=== PATIENT | female | born 1965 | race Hispanic/Latino ===

== ENCOUNTER 2018-04-06 12:33 | Inpatient (IN) | payer SELFPAY ==
[2018-04-06] MEDS ORDERED: Ondansetron ODT 4 MG TAB ONE ×2 (13:04→23:16)
[2018-04-06 13:35] LABS: #Lymphocytes 2.5 thou/uL (1.20-3.40); #Monocytes 0.8 thou/uL (0.11-0.59); #Neutrophils 9.6 thou/uL (1.40-6.50); %Basophils 0.4 % (0.0-1.0); %Eosinophils 0.2 % (0.0-10.0); %Monocytes 6.2 % (0.0-10.0); %Neutrophils 74.2 % (42.0-75.0); Hemoglobin 12.8 g/dL (12.0-16.0); Mean Corpuscular HGB CONC 34.4 g/dL (32.0-36.0); Mean Corpuscular Hemoglobin 29.1 pg (27.0-31.0); Mean Corpuscular Volume 84.7 fL (78.0-98.0); Mean Platelet Volume 10.2 fL (7.4-10.4); Platelet Count 173 thou/uL (130-400); RBC Distribution Width 12.7 % (11.5-14.5); Red Blood Cell (RBC) Count 4.41 mill/uL (4.20-5.40)
[2018-04-06] MEDS ORDERED: Pantoprazole 40 MG VIAL ONE (13:57)
[2018-04-06] MEDS ORDERED: Ketorolac Tromethamine 30 MG/ML VIAL ONE (13:57)
[2018-04-06 14:05] LABS: ALT (SGPT) 106 U/L (8-55); AST (SGOT) 252 U/L (5-34); Albumin 3.9 g/dL (3.5-5.0); Alkaline Phosphatase 169 U/L (40-150); Anion Gap 16 mmol/L (10-20); BUN (Urea Nitrogen) 9 mg/dL (7.0-18.7); Bilirubin, Total 2.2 mg/dL (0.2-1.2); Calc. Creatinine Clearance 0 mL/min (70-130); Calcium 9.5 mg/dL (7.8-10.44); Carbon Dioxide 23 mmol/L (22-29); Chloride 100 mmol/L (98-107); Estimated GFR-MDRD 77; Globulin 4.5 g/dL (2.4-3.5); Glucose 200 mg/dL (70-105); Lipase 9 U/L (8-78); Potassium 4.2 mmol/L (3.5-5.1); Protein, Total 8.4 g/dL (6.0-8.3); Sodium 135 mmol/L (136-145)
--- NOTE | 2018-04-06 14:17 | RAD ---
AP VIEW CHEST: Date: 04/06/18 INDICATION: Abdominal pain. COMPARISON: None. FINDINGS: Lungs are clear. Cardiomediastinal silhouette is within normal limits. No acute osseous abnormality i s evident. There are mild vascular calcifications involving the thoracic aorta. IMPRESSION: No acute abnormality. POS: [facility]
--- NOTE | 2018-04-06 14:20 | ULT ---
RIGHT UPPER QUADRANT ULTRASOUND: INDICATION: Right upper quadrant pain with nausea and vomiting. FINDINGS: The liver is slightly enlarged measuring 20.8 cm. The gallbladder demonstrates multiple shadowing stones. The gallbladder wall is mildly thickened melvin suring 4 mm. There is a report of a positive sonographic Shields's sign. No pericholecystic edema is evident. The common bile duct is slightly prominent measuring 7 mm. There is a report of a positive sonographic Shields's sign. Visualized aspects of the pancreas are unremarkable. The right kidney measures 10.1 x 4.5 x 5.5 cm. IMPRESSION: 1. Cholelithiasis with mild gallbladder wall thickening and a positive sonographic Shields's sign rylee t is suspicious for changes of acute calculus cholecystitis. 2. Slight dilatation of the common bile duct to 7 mm is pronounced for the patient's age. Distal co mmon bile duct stone or obstruction process is not excluded. 3. Recommend consideration for MRCP or HIDA scan for further evaluation. 4. Mild hepatomegaly. POS: H
[2018-04-06] MEDS ORDERED: Levofloxacin 500 mg/D5W 100 ml Premix Bag ONE (14:35)
[2018-04-06 17:30] LABS: Bilirubin Small (Negative); Blood, Urine Negative (Negative); Clarity CLEAR (Clear); Glucose, Urine (Dipstick) 250 mg/dL (Negative); Leukocyte Negative (Negative); Nitrite Positive (Negative); Protein, Urine (Dipstick) Trace mg/dL (Neg-Trace); Specific Gravity, Urine 1.017 (1.002-1.036)
[2018-04-06 17:34] LABS: Bacteria/HPF 4+ HPF (None Seen); Hyaline Casts/LPF 0-3 HYALINE CAST LPF (0-3 Hyaline); Pathc Cast-AUWi Flag 0.14 (0-2.49); Squamous Epithelial 0-3 HPF (0-3); WBC/HPF 0-3 HPF (0-3)
[2018-04-06 17:50] LABS: RBC/HPF 0-3 HPF (0-3)
[2018-04-06] MEDS ORDERED: Morphine 4 MG/ML VIAL ONE (18:07)
[2018-04-06] MEDS ORDERED: Famotidine/PF 20 mg/2ml Vial ONE (18:07)
[2018-04-06] MEDS ORDERED: Midazolam HCl 2 mg/2 ml Vial ONE (18:39)
[2018-04-06] MEDS ORDERED: Fentanyl 100 MCG/2 ML VIAL ONE (18:47)
[2018-04-06] MEDS ORDERED: Bupivacaine HCl 0.5%/Epinephrine 1:200,000/PF 30 ml Vial ONE (18:47)
[2018-04-06] MEDS ORDERED: Iothalamate Meglumine 60% 50 ML VIAL FS ONE (18:47)
--- NOTE | 2018-04-06 20:05 | RAD ---
INTRAOPERATIVE CHOLANGIOGRAM WITH FLUOROSCOPY: HISTORY: Cholecystectomy. FINDINGS: Intraoperative fluoroscopy was provided for cholangiogram, as performed by Dr. Rivas. Spot fluorosc opic images show operative hardware overlying the gallbladder fossa. There is contrast opacification of a nondilated common duct. Opacification of the duodenum is not reliably demonstrated, although n o filling defects or meniscus sign is visible. FLUOROSCOPY TIME: 20 seconds. POS: [facility]
[2018-04-06] MEDS ORDERED: Morphine 4 MG/ML VIAL SLOW IVP PRN (20:16)
[2018-04-06] MEDS ORDERED: Dextrose 5% in Water 1,000 ML IV PRN (20:16)
[2018-04-06] MEDS ORDERED: Ondansetron HCl/PF 4 MG/2 ML Vial IVP PRN ×2 (20:16→20:27)
[2018-04-06] MEDS ORDERED: Dextrose 50% Abboject 50 ML SYRINGE SLOW IVP PRN (20:16)
[2018-04-06] MEDS ORDERED: Ondansetron ODT 4 MG TAB PO PRN (20:16)
[2018-04-06] MEDS ORDERED: Acetaminophen 1,000 MG in Premix Bag 1 BAG IVPB PRN (20:21)
[2018-04-06] MEDS ORDERED: traMADol HCl 50 MG TAB PO PRN ×2 (20:21)
[2018-04-06] MEDS ORDERED: Acetaminophen 500 MG TAB PO PRN (20:21)
[2018-04-06] MEDS ORDERED: Ibuprofen 600 MG TAB PO PRN (20:21)
[2018-04-06] MEDS ORDERED: Promethazine HCl 25 MG/ML VIAL SLOW IVP PRN (20:27)
[2018-04-06] MEDS ORDERED: Promethazine HCl 25 MG/ML VIAL IM PRN (20:27)
[2018-04-06] MEDS: Sodium Chloride 0.9% 1,000 ML IV SCH (21:45)
[2018-04-06] MEDS: Ketorolac Tromethamine 30 MG/ML VIAL IVP PRN (21:45)
[2018-04-06] MEDS: Enoxaparin Sodium 40 MG/0.4 ML SYRINGE SC SCH (21:45)
[2018-04-06] MEDS: Famotidine/PF 20 mg/2ml Vial SLOW IVP SCH (21:45)
[2018-04-06 23:28] VITALS: BMI 40.8
--- NOTE | 2018-04-06 23:52 | HP ---
HISTORY OF PRESENT ILLNESS: A 52-year-old female who over past several months, has had problems with intermittently epigastric right upper quadrant pain, but the last three days has had unrelenting marsha n leading her to present to the emergency room where she was found to have a white count of 13, hemog lobin of 12, bilirubin of 2.2, AST of 252, ALT 106, lipase of 9. Gallbladder ultrasound was obtained revealing cholecystitis and cholelithiasis, bile duct caliber 7 mm, upper limits of normal, positive sonographic Shields sign. ALLERGIES: RODGER. TOBACCO: None. ALCOHOL: Rarely. MEDICATIONS: She received Levaquin in the emergency room as well as Toradol. She has received Zofra n and Protonix. Patient is on antibiotic at home for toenail infection, terbinafine 250 mg a day, pi oglitazone 45 mg a day, glipizide 10 mg a day. PAST MEDICAL HISTORY: Diabetes mellitus type 2 and obesity. PAST SURGICAL HISTORY: Hysterectomy, oophorectomy, prior to that. REVIEW OF SYSTEMS: Ten-point noncontributory. Never has had a colonoscopy. PHYSICAL EXAMINATION: VITAL SIGNS: 104 pounds, 16 respiratory rate, 98.8 degrees, 76, 144/82. HEAD, EYES, EARS, NOSE, AND THROAT: Unremarkable. Sclerae nonicteric. LUNGS: Clear to auscultation. CARDIAC: Regular rate and rhythm without murmur or gallop. ABDOMEN: Soft, tenderness in right groin guarding, rebound. Positive Shields sign. EXTREMITIES: Unremarkable. No ankle edema. LABORATORIES: As noted above. ASSESSMENT AND PLAN: 1. Acute cholecystitis and cholelithiasis, elevated liver function test and upper limits of normal c ommon bile duct. We will plan laparoscopic cholecystectomy, cholangiograms. Her liver function test could be elevated due to her acute cholecystitis, but she is at risk for choledocholithiasis, possib ility of ERCP with Dr. Rose explain to the patient. Risk of operation, infection, bleeding, visceral and biliary injury, open procedure discussed. Risk of ERCP bleeding, perforation, infection and lakhani creatitis discussed. Questions answered. 2. Morbid obesity. 3. Metabolic syndrome. 4. Diabetes mellitus.
--- NOTE | 2018-04-07 00:48 | OP ---
DATE OF SERVICE: 04/06/2018 PREOPERATIVE DIAGNOSES: Morbid obesity, umbilical hernia, acute on chronic cholecystitis, cholelithi asis, choledocholithiasis. POSTOPERATIVE DIAGNOSES: Morbid obesity, umbilical hernia, acute on chronic cholecystitis, cholelith iasis, choledocholithiasis. PROCEDURE: Laparoscopic video cholecystectomy, positive intraoperative cholangiograms without emptyi ng of the common bile duct into the duodenum. SURGEON: Dr. Sander Rivas. ANESTHESIA: General, local 0.5% Marcaine with epinephrine. DESCRIPTION OF PROCEDURE: The patient taken to the operating room where under general anesthesia, ab shelton was prepared with ChloraPrep, draped in routine fashion. Supraumbilical incision made (umbilic al hernia) and pneumoperitoneum to 15 mmHg obtained with a Veress needle, replacing it with a 5 port, and video laparoscope inserted. Right subxiphoid incision made and 11 port placed. Right subcostal incision made. Thick mid clavicular anterior axillary lines with 5 mm ports placed. Gallbladder wa s acutely inflamed and fundus grasped. There was clear fluid initially, then purulent discharge or d rainage. There were multiple small stones, grasped with a grasper, and submitted to pathology. Gall bladder fundus reflected cephalad. Infundibulum grasped and reflected laterally. Cystic artery and duct dissected free. Critical view obtained. Cystic artery double clipped proximally. Opening made in the cystic duct, cholangiocath inserted, and cholangiogram was obtained revealing contrast fillin g the common hepatic, common bile, left and right hepatic ducts without emptying into the duodenum. It was then flushed with saline solution. Cholangiogram was repeated using fluoroscopy. Again, ther e was no emptying. Dr. Rose was consulted and ERCP will be planned tomorrow. Cholangiocath removed. Cystic duct doubly clipped and divided and gallbladder dissected free of the liver bed using cauter y. Gallbladder came out in pieces. Multiple stones removed, and submitted to Pathology. Good hemos tasis obtained with the cautery. Right lateral port site drain #19 Gold placed in the subhepatic spa ce, in the foramen of Clymer and secured with 3-0 nylon suture. Good hemostasis ensured. Irrigant and pneumoperitoneum evacuated. All instruments removed and all skin incisions approximated with int errupted subdermal 4-0 Monocryl and DermaGlue applied.
[2018-04-07] MEDS: Ketorolac Tromethamine 30 MG/ML VIAL IVP PRN ×2 (05:54→21:07)
[2018-04-07 06:05] LABS: #Lymphocytes 1.7 thou/uL (1.20-3.40); #Monocytes 0.9 thou/uL (0.11-0.59); #Neutrophils 8.1 thou/uL (1.40-6.50); %Basophils 0.2 % (0.0-1.0); %Eosinophils 0.1 % (0.0-10.0); %Lymphocytes 16.1 % (21.0-51.0); %Monocytes 8.3 % (0.0-10.0); %Neutrophils 75.3 % (42.0-75.0); Hemoglobin 10.7 g/dL (12.0-16.0); Mean Corpuscular Hemoglobin 28.3 pg (27.0-31.0); Mean Corpuscular Volume 85.8 fL (78.0-98.0); Mean Platelet Volume 10.4 fL (7.4-10.4); Platelet Count 143 thou/uL (130-400); RBC Distribution Width 12.7 % (11.5-14.5); White Blood Cell (WBC) Count 10.8 thou/uL (4.8-10.8)
[2018-04-07] MEDS: Sodium Chloride 0.9% 1,000 ML IV SCH ×3 (06:07→21:06)
[2018-04-07 06:25] LABS: ALT (SGPT) 166 U/L (8-55); AST (SGOT) 133 U/L (5-34); Albumin 3.2 g/dL (3.5-5.0); Alkaline Phosphatase 190 U/L (40-150); Anion Gap 13 mmol/L (10-20); BUN (Urea Nitrogen) 11 mg/dL (7.0-18.7); Bilirubin, Total 5.7 mg/dL (0.2-1.2); Calc. Creatinine Clearance 132 mL/min (70-130); Calcium 8.7 mg/dL (7.8-10.44); Carbon Dioxide 25 mmol/L (22-29); Chloride 102 mmol/L (98-107); Estimated GFR-MDRD 72; Globulin 3.5 g/dL (2.4-3.5); Glucose 241 mg/dL (70-105); Potassium 4.9 mmol/L (3.5-5.1); Protein, Total 6.7 g/dL (6.0-8.3); Sodium 135 mmol/L (136-145)
--- NOTE | 2018-04-07 07:14 | CON ---
DATE OF CONSULTATION: 04/07/2018 HISTORY OF PRESENT ILLNESS: The patient is a 52-year-old female who presented with cholecys titis and underwent cholecystectomy by Dr. Rivas. An intraoperative cholangiogram showed filling de fects and no flow into the duodenum. She is sore after surgery, but otherwise without complaints. PAST MEDICAL HISTORY: Significant for diabetes mellitus. PAST SURGICAL HISTORY: Includes a hysterectomy. ALLERGIES: No known medical allergies. SOCIAL HISTORY: She does not smoke or drink. MEDICATIONS: Ultram 1-2 p.o. q.6 hours p.r.n., glipizide 2 p.o. daily, pioglitazone 45 mg p.o. daily , Terbinafine 250 mg p.o. daily. FAMILY HISTORY: Negative. REVIEW OF SYSTEMS: Noncontributory. PHYSICAL EXAMINATION: GENERAL: Shows obese female, in no acute distress. VITAL SIGNS: Temperature 98.2, pulse 66, respiratory rate 17, blood pressure 103/68. HEENT: Unremarkable. NECK: Supple. CHEST: Clear. CARDIOVASCULAR: Regular rate and rhythm. ABDOMEN: Soft, tender over the right upper quadrant. There is a drain in the right upper quadrant. EXTREMITIES: Normal. NEUROLOGIC: Nonfocal. LABORATORY DATA: Shows admission total bilirubin 2.2, AST of 252, ALT 106, alkaline phosphatase 169. CBC shows an admission hemoglobin 12.8, hematocrit 37.3, white blood cell count 13.0. ASSESSMENT: 1. Choledocholithiasis by intraoperative cholangiogram. 2. Abnormal liver function tests. 3. Diabetes mellitus. RECOMMENDATIONS: ERCP today.
[2018-04-07] MEDS: Famotidine/PF 20 mg/2ml Vial SLOW IVP SCH ×2 (08:10→21:06)
--- NOTE | 2018-04-07 09:11 | PRG ---
DATE OF SERVICE: 04/07/2018 Asia Lala is doing well today. ERCP with Dr. Andrews is planned this afternoon. PHYSICAL EXAMINATION: VITAL SIGNS: Temperature 98.2 degrees, heart rate 66, 103/68. LABORATORY: This morning her white count is 10, hemoglobin 10, sodium 135, potassium 4.9, BUN 11, cr eatinine 0.84, bilirubin is up to 5.7. AST, ALT 133 and 166 respectfully, 190 alkaline phosphatase. LUNGS: Clear to auscultation. CARDIAC: Regular rate and rhythm without murmur or gallop. ABDOMEN: Soft, postoperative tenderness as expected around laparoscopic sites. Drain serous in natu re 90 mL postoperatively. ASSESSMENT AND PLAN: Status post laparoscopic video cholecystectomy. Diet and activity as tolerated after ERCP, sphincterotomy by Dr. Andrews. Advance diet after this procedure per Dr. Andrews. Anticipate discharge home tomorrow. Check laboratories tomorrow.
[2018-04-07] MEDS ORDERED: Iothalamate Meglumine 60% 50 ML VIAL FS ONE (11:39)
[2018-04-07] MEDS ORDERED: Indomethacin 50 MG SUPP ONE ×2 (11:39→12:58)
[2018-04-07] MEDS ORDERED: Midazolam HCl 2 mg/2 ml Vial ONE (13:04)
[2018-04-07] MEDS ORDERED: Fentanyl 100 MCG/2 ML VIAL ONE (13:04)
--- NOTE | 2018-04-07 17:01 | OP ---
SURGEON: Joe Andrews M.D. INTELLIGENCE OFFICER BASIC SURGEON: None. PROCEDURE: Endoscopic retrograde cholangiopancreatography with biliary sphincterotomy and stone extr action. INDICATION: 1. Choledocholithiasis, based on positive intraoperative cholangiogram. 2. Elevated liver function tests. MEDICATIONS: 1. See anesthesia record. 2. Indomethacin 100 mg per rectum. FINDINGS: After discussion of the risks, benefits and alternatives of the procedure, informed consen t was obtained and witnessed. Pre-endoscopic cardiopulmonary examination was satisfactory. Timeout was performed before sedation was achieved. Sedation was achieved with anesthesia assistance in the endoscopy unit. The patient was endotracheally intubated and sedated under general anesthesia in a s mere-prone position on the fluoroscopy table. A Pentax adult side-viewing duodenoscope was advanced b eyond the esophagus and stomach and into the second portion of the duodenum. The ampulla was brought into view with the endoscope in the short position, the ampulla was small in size, but otherwise nor mal appearing. Using a triple lumen dome tip sphincterotome and a 0.035 guidewire, I was able to yves ectively cannulate the common bile duct. The guidewire was passed up into the right intrahepatic sys tem. Cholangiogram was performed. This demonstrated some hazy possible filling defects in the dista l common bile duct, which appeared nondilated. Cholecystectomy clips were evident. The cystic duct did not fill. At this point, a generous biliary sphincterotomy was performed. After the sphincterot sondra, we exchanged the sphincterotome for a 9-12 mm extraction balloon. I made multiple passes throug h the common bile duct with the balloon fully inflated. In this fashion, I was able to extract a sin gle small dark pigmented gallstone and a large amount of white pus from the common bile duct. We did irrigate the common bile duct with 60 mL of sterile water with clear return of following irrigation and occlusion cholangiogram was then performed, which demonstrated normal appearing common bile duct with no persistent filling defect. One final sweep was made of the common bile duct with the balloon fully inflated to sweep out excess contrast. At this point, the working apparatus and the endoscope were both completely withdrawn. The procedure was complete. Postprocedure fluoroscopic images demo nstrated no retroperitoneal or subdiaphragmatic free air. The patient tolerated the procedure well. There were no immediate post-procedure complications. IMPRESSION: Choledocholithiasis, now status post successful endoscopic retrograde cholangiopancreato graphy with biliary sphincterotomy and balloon extraction of single small dark pigmented stone and la rge amount of white pus from the common bile duct. RECOMMENDATIONS: 1. Clear liquid diet, advance as tolerated. 2. Monitor for potential post-ERCP complications including pancreatitis.
[2018-04-07] MEDS: HumaLOG 300 UNITS/3 ML VIAL SC PRN ×2 (17:47→21:13)
[2018-04-07] MEDS: Enoxaparin Sodium 40 MG/0.4 ML SYRINGE SC SCH (21:07)
[2018-04-07] MEDS ORDERED: Acetaminophen 500 MG TAB PO PRN (22:00)
[2018-04-08 06:04] LABS: #Eosinphils 0.1 thou/uL (0.0-0.7); #Lymphocytes 1.8 thou/uL (1.20-3.40); #Monocytes 0.9 thou/uL (0.11-0.59); #Neutrophils 6.3 thou/uL (1.40-6.50); %Basophils 0.3 % (0.0-1.0); %Eosinophils 1.6 % (0.0-10.0); %Lymphocytes 19.7 % (21.0-51.0); %Monocytes 9.8 % (0.0-10.0); %Neutrophils 68.6 % (42.0-75.0); Hemoglobin 9.6 g/dL (12.0-16.0); Mean Corpuscular Hemoglobin 29.3 pg (27.0-31.0); Mean Corpuscular Volume 86.3 fL (78.0-98.0); Mean Platelet Volume 10.3 fL (7.4-10.4); Platelet Count 132 thou/uL (130-400); RBC Distribution Width 12.7 % (11.5-14.5); Red Blood Cell (RBC) Count 3.28 mill/uL (4.20-5.40); White Blood Cell (WBC) Count 9.2 thou/uL (4.8-10.8)
[2018-04-08 06:29] LABS: ALT (SGPT) 105 U/L (8-55); AST (SGOT) 44 U/L (5-34); Albumin 2.8 g/dL (3.5-5.0); Alkaline Phosphatase 163 U/L (40-150); Anion Gap 11 mmol/L (10-20); BUN (Urea Nitrogen) 13 mg/dL (7.0-18.7); Calc. Creatinine Clearance 136 mL/min (70-130); Calcium 8.3 mg/dL (7.8-10.44); Carbon Dioxide 23 mmol/L (22-29); Chloride 106 mmol/L (98-107); Estimated GFR-MDRD 74; Globulin 3.4 g/dL (2.4-3.5); Glucose 156 mg/dL (70-105); Potassium 4.2 mmol/L (3.5-5.1); Protein, Total 6.2 g/dL (6.0-8.3); Sodium 136 mmol/L (136-145)
[2018-04-08] MEDS: Sodium Chloride 0.9% 1,000 ML IV SCH (06:30)
[2018-04-08] MEDS ORDERED: traMADol HCl 50 MG TAB PO PRN ×2 (07:02→07:05)
[2018-04-08] MEDS: Ketorolac Tromethamine 30 MG/ML VIAL IVP PRN ×2 (07:38→13:32)
[2018-04-08] MEDS ORDERED: glipiZIDE 10 MG TAB PO SCH ×2 (09:00)
[2018-04-08] MEDS ORDERED: Terbinafine 250 MG TAB PO SCH (09:00)
[2018-04-08] MEDS ORDERED: Pioglitazone HCl 45 MG TAB PO SCH (09:00)
--- NOTE | 2018-04-08 09:53 | PRG ---
DATE OF SERVICE: 04/08/2018 SUBJECTIVE: Ms. Lala is doing well today. She underwent ERCP, sphincterotomy, stone extraction samaria ng with decompression of purulent material from her common bile duct performed by Dr. Andrews. She is f eeling better this morning, having minimal pain and soreness from laparoscopic incisions from her lap aroscopic cholecystectomy. PHYSICAL EXAMINATION: VITAL SIGNS: Temperature 99.8 degrees, 85, 115/67. LUNGS: Clear to auscultation. CARDIAC: Regular rate and rhythm without murmur or gallop. ABDOMEN: Soft. Trocar sites well healed drainage PURNIMA serous, output 90 mL for 24 hours. This morning her white count is 9, hemoglobin 9.6, bilirubin has fallen from 5.7 yesterday to 4. Her AST and ALT have also decreased 133 to 44 and 166 to 105 respectively. Alkaline phosphatase 190 to 163. The patient is doing well and will be discharged home with Cipro 500 b.i.d. for 5 days, Ultram #20, 2 refills as needed for pain refractory to Tylenol or Advil. Diet and activity as tolerated and PURNIMA re moved prior to discharge.
[2018-04-08 11:14] VITALS: BP 128/74; TEMP 98.6
--- NOTE | 2018-04-08 12:34 | DIS ---
DATE OF ADMISSION: 04/06/2018 DATE OF DISCHARGE: 04/08/2018 DISCHARGE DIAGNOSES: 1. Cholecystitis. 2. Cholelithiasis. 3. Cholangitis. 4. Choledocholithiasis. 5. Obesity. 6. Uninsured. 7. Works at a bakery. 8. Diabetes mellitus. 9. Hypertension. DISCHARGE MEDICATIONS: Glipizide 2 p.o. daily, pioglitazone 45 mg a day, terbinafine 250 mg daily, t ramadol p.r.n. pain, ibuprofen p.r.n. pain, Tylenol p.r.n. pain, Cipro 500 b.i.d. for 5 days. PLAN: Liver function test the morning that she sees me in the office. I told her that she can retur n to work ago Friday, today is Friday. HISTORY: A 52-year-old female with biliary symptoms for several weeks, presents with exquisite pain, was seen in the emergency room. Liver function tests moderately elevated. Bile duct 7 mm, upper li mits of normal. Bilirubin elevated at 2.2. The patient underwent laparoscopic cholecystectomy, chol angiograms revealing acute cholecystitis, positive cholangiograms without emptying into the bile duct . Dr. Andrews and Dr. Rose were called. They saw the patient. Next morning, ERCP and sphincterotomy w ere performed. Her liver function tests improved prior to discharge. Plan is for discharge home. Edward martinez her home medications, Cipro 500 b.i.d. for 5 days. Follow up in my office in 2 weeks. Diet an d activity as tolerated. No lifting restrictions. Return to work in 48 hours, Friday.
--- NOTE | 2018-04-08 12:57 | EKG ---
Test Reason : ABD PAIN Blood Pressure : / mmHG Vent. Rate : 072 BPM Atrial Rate : 072 BPM P-R Int : 138 ms QRS Dur : 074 ms QT Int : 386 ms P-R-T Axes : 068 051 024 degrees QTc Int : 422 ms Normal sinus rhythm Possible Left atrial enlargement Borderline ECG Confirmed by DEEPIKA BUTLER, EUGENIA ([id number]), digital editor BRENTON LANIER ([id number] on 04/08/2018 12:56:51 PM Referred By: Confirmed By:EUGENIA POE MD
== END 2018-04-08 14:56 | disposition home or self-care (01) | DRG 418 ==
LOC: ERS 12:33 → SURG A 14:00 → ERS 14:36 → SURG A 20:54
PROVIDERS: ADMIT Specialist; ATTEND Specialist
PROC: 0FT44ZZ Resection of Gallbladder, Percutaneous Endoscopic Approach (ICD-10-PCS; principal; 2018-04-06)
PROC: BF101ZZ Fluoroscopy of Bile Ducts using Low Osmolar Contrast (ICD-10-PCS; 2018-04-06)
PROC: 0FC98ZZ Extirpation of Matter from Common Bile Duct, Via Natural or Artificial Opening Endoscopic (ICD-10-PCS; 2018-04-06)
PROC: BF101ZZ Fluoroscopy of Bile Ducts using Low Osmolar Contrast (ICD-10-PCS; 2018-04-06)
DX: K80.66 Calculus of gallbladder and bile duct with acute and chronic cholecystitis without obstruction (principal); Z68.41 Body mass index [BMI] 40.0-44.9, adult; E66.01 Morbid (severe) obesity due to excess calories; K42.9 Umbilical hernia without obstruction or gangrene; E11.9 Type 2 diabetes mellitus without complications; E88.81 Metabolic syndrome and other insulin resistance
CPT/HCPCS: 36415; 36416; 47532; 71045; 76705; 80053; 81003; 81015; 83690; 85025; 88304; 93005; 96361; 96365; 96375; C9113; J0131; J0670; J1610; J1650; J1885; J1956; J2250; J2270; J3010; Q0162; Q9961; S0028

== ENCOUNTER 2019-01-04 13:59 | Emergency (ER) | payer SELFPAY ==
[2019-01-04 14:37] LABS: #Eosinphils 0.2 thou/uL (0.0-0.7); #Lymphocytes 2.3 thou/uL (1.20-3.40); #Monocytes 0.6 thou/uL (0.11-0.59); #Neutrophils 4.7 thou/uL (1.40-6.50); %Basophils 0.3 % (0.0-1.0); %Eosinophils 3.1 % (0.0-10.0); %Lymphocytes 29.2 % (21.0-51.0); %Monocytes 7.3 % (0.0-10.0); %Neutrophils 60.1 % (42.0-75.0); Hemoglobin 13.1 g/dL (12.0-16.0); Mean Corpuscular HGB CONC 34.3 g/dL (32.0-36.0); Mean Corpuscular Hemoglobin 29.1 pg (27.0-31.0); Mean Corpuscular Volume 84.8 fL (78.0-98.0); Mean Platelet Volume 10.8 fL (7.4-10.4); Platelet Count 165 thou/uL (130-400); White Blood Cell (WBC) Count 7.7 thou/uL (4.8-10.8)
[2019-01-04 14:55] LABS: ALT (SGPT) 19 U/L (8-55); AST (SGOT) 18 U/L (5-34); Albumin 4.1 g/dL (3.5-5.0); Alkaline Phosphatase 105 U/L (40-150); Anion Gap 13 mmol/L (10-20); BUN (Urea Nitrogen) 11 mg/dL (9.8-20.1); Bilirubin, Total 0.8 mg/dL (0.2-1.2); Calc. Creatinine Clearance 0 mL/min (70-130); Calcium 9.9 mg/dL (7.8-10.44); Carbon Dioxide 28 mmol/L (22-29); Chloride 103 mmol/L (98-107); Estimated GFR-MDRD 70; Globulin 3.8 g/dL (2.4-3.5); Glucose 187 mg/dL (70-105); Potassium 4.2 mmol/L (3.5-5.1); Protein, Total 7.9 g/dL (6.0-8.3); Sodium 140 mmol/L (136-145)
[2019-01-04] MEDS ORDERED: ISOVUE-370 76%-LOCM 1 ML ONE (16:11)
--- NOTE | 2019-01-04 16:46 | CT ---
CONTRAST ENHANCED CT IMAGES OF SOFT TISSUE NECK: HISTORY: Patient with left-sided neck pain for 4 months who presents to the emergency room for emerge nt after hour evaluation. FINDINGS: Contrast enhanced CT images soft tissue neck obtained. There is a 3.2 x 2.6 x 3.7 cm left neck mass superior or originating from the upper aspect of the lef t thyroid lobe extending upwards. This lesion extends upwards just inferior and to the left of the thyroid cartilage. The lesion is anterior to the left carotid space. There is some fullness also seen in the left piriform sinus. The necrotic left-sided lesion may repre sent a possible necrotic lymph node versus abscess. Differential diagnoses includes bacterial abscess versus possible squamous cell carcinoma. Correlate with history and ENT consultation. IMPRESSION: Left piriform sinus soft tissue enhancement and fullness with area of a necrotic peripherally enhanci ng lesion lateral and inferior to this along the anterior left carotid space. Transcribed Date/Time: 01/04/2019 5:25 PM
== END 2019-01-04 18:03 | disposition home or self-care (01) ==
LOC: ERS 13:59
DX: R22.1 Localized swelling, mass and lump, neck (principal); E11.9 Type 2 diabetes mellitus without complications; Z79.84 Long term (current) use of oral hypoglycemic drugs
CPT/HCPCS: 36415; 70491; 80053; 84443; 85025; 87081; 87430; Q9966

== ENCOUNTER 2019-01-20 11:42 | Inpatient (IN) | payer OTHER ==
[2019-01-20] MEDS ORDERED: Lidocaine 1% w/Epinephrine 1:100K 20 ML VIAL ONE (12:55)
[2019-01-20] MEDS ORDERED: Fentanyl 100 MCG/2 ML VIAL ONE ×3 (13:07→16:09)
[2019-01-20] MEDS ORDERED: Dexmedetomidine 200 MCG/2 ML VIAL ONE (13:08)
[2019-01-20] MEDS ORDERED: PROPOFOL 20 ML ONE (14:53)
[2019-01-20] MEDS ORDERED: Promethazine HCl 25 MG/ML VIAL IM PRN (15:46)
[2019-01-20] MEDS ORDERED: Ondansetron HCl/PF 4 MG/2 ML Vial IVP PRN (15:46)
[2019-01-20] MEDS ORDERED: Promethazine HCl 25 MG/ML VIAL SLOW IVP PRN (15:46)
[2019-01-20 17:55] VITALS: BMI 42.6
[2019-01-20] MEDS ORDERED: Hydrocodone-Acetamin 15 ML UDCUP PO PRN (18:09)
[2019-01-20] MEDS ORDERED: Morphine 2 MG/ML SYRINGE SLOW IVP PRN (18:09)
[2019-01-20] MEDS ORDERED: Bacitracin Zinc 1 Packet TOP PRN (18:10)
[2019-01-20] MEDS ORDERED: Acetaminophen 500 MG TAB PO PRN (18:11)
[2019-01-20] MEDS ORDERED: ceFAZolin 1 GM/D5W 1 GM in Premix Bag 1 BAG IVPB SCH (18:15)
[2019-01-20] MEDS: Sodium Chloride 0.45% 1,000 ML IV SCH (18:35)
[2019-01-20] MEDS ORDERED: Dextrose 5% in Water 1,000 ML IV PRN (21:02)
[2019-01-20] MEDS ORDERED: Dextrose 50% Abboject 50 ML SYRINGE IVP PRN (21:02)
[2019-01-20] MEDS: HumaLOG 300 UNITS/3 ML VIAL SC PRN (21:43)
--- NOTE | 2019-01-20 22:26 | CON ---
DATE OF CONSULTATION: SUBJECTIVE: Ms. Lala is postoperative for total thyroidectomy and papillary thyroid cancer. Overall, the patient is doing well. Nurse reports that she is resting comfortably and she is smiling. She does not seem to be having any difficulty swallowing. She is tolerating fluids through her IV as she has not tried any liquids at this time. OBJECTIVE: GENERAL: The patient is well developed, well nourished, in no acute distress. VITAL SIGNS: Her vital signs are stable. First calcium reading is 9.4 within normal range. The patient is able to speak without difficulty, swallow without difficulty. Answers all questions appropriately. Both drains are in place and scar appears to be without any complication. ASSESSMENT: 1. Postoperative total thyroidectomy. 2. Papillary thyroid cancer. PLAN: 1. The patient to begin with liquids to continue to assess swallowing. Diet may be advanced as tolerated. 2. Will continue to check calciums every 8 hours. 3. Plan to remove 1 drain tomorrow and then discharge to home with second drain removal on Friday. Job ID: [id number]
[2019-01-21] MEDS: HumaLOG 300 UNITS/3 ML VIAL SC PRN ×2 (06:41→11:24)
[2019-01-21] MEDS: Sodium Chloride 0.45% 1,000 ML IV SCH ×2 (06:51→14:09)
[2019-01-21] MEDS ORDERED: glipiZIDE 10 MG TAB PO SCH (07:30)
[2019-01-21] MEDS: Calcium Carbonate 500 MG TAB PO SCH ×2 (08:22→11:25)
[2019-01-21] MEDS ORDERED: Calcitriol 0.25 MCG CAP PO SCH (09:00)
[2019-01-21] MEDS ORDERED: Pioglitazone HCl 45 MG TAB PO SCH (09:00)
--- NOTE | 2019-01-21 09:29 | OP ---
DATE OF PROCEDURE: 01/20/2019 PREOPERATIVE DIAGNOSIS: Left thyroid mass. POSTOPERATIVE DIAGNOSIS: Papillary thyroid carcinoma. PROCEDURE PERFORMED: Total thyroidectomy with intraoperative laryngeal nerve monitor. ESTIMATED BLOOD LOSS: 100 mL. COMPLICATIONS: None. ANESTHESIA: GETA. DESCRIPTION OF PROCEDURE: The patient was taken to the operating room, placed supine on the table, general endotracheal anesthesia was obtained by anesthesia staff. Tube was secured in the midline of the upper lip. Laryngeal electrodes were confirmed to be between the vocal cords. The tube was secured. Shoulder roll was placed. The patient was prepped and draped in standard surgical fashion. Following this, 8 mL of 1% lidocaine with 1:100,000 epinephrine was injected into a troy-shaped area overlying the thyroid gland. Following this, an incision was made through the skin and subcutaneous tissue and the platysmal layer. Subplatysmal flaps were dissected superiorly and inferiorly. Following this, strap muscles were identified in the midline, retracted laterally. The strap muscles were adherent and sticky to this large left thyroid mass which was extending superiorly. It was markedly adherent to the majority of the upper cervical esophagus, in lateral pharyngeal wall musculature. Dissection was carried around this area. It was also noted that the left thyroid lobe was sticky and adherent to the carotid gland. These areas were meticulously dissected. Following this, the recurrent laryngeal nerve on this left side was identified coursing into the cricothyroid joint. The nerve was markedly atrophic and pale, was protected as the gland was released from this area. The gland was then released from Galindo ligaments trachea. Inferior thyroid artery was suture ligated. Following this, the specimen was sent for frozen analysis, which confirmed papillary thyroid cancer. Therefore, a similar procedure was performed on the right side. Dissection was carried medially adjacent to the right thyroid lobe. The middle thyroid vein was suture ligated. The gland was displaced inferiorly. The superior vascular pedicle was suture ligated medially adjacent to the right thyroid lobe. Following this, the inferior parathyroid gland was identified and was preserved. The recurrent laryngeal nerve was identified and was protected as the gland was freed from the area of the cricothyroid joint. The right gland was then removed from the body. The wound was irrigated. Two drains were placed, and the strap muscles, platysmal layer and subcuticular layer were closed using Monocryl. The skin was closed using Dermabond. The patient tolerated the procedure well. Job ID: [id number]
[2019-01-21 15:56] VITALS: BP 128/76; TEMP 98.3
== END 2019-01-21 15:55 | disposition home or self-care (01) | DRG 626 ==
LOC: SDC 11:42 → SURG A 16:00
PROVIDERS: ADMIT Otolaryngology Plastic Surgery within the Head & Neck; ATTEND Otolaryngology Plastic Surgery within the Head & Neck
PROC: 0GTG0ZZ Resection of Left Thyroid Gland Lobe, Open Approach (ICD-10-PCS; principal; 2019-01-20)
PROC: 0GTH0ZZ Resection of Right Thyroid Gland Lobe, Open Approach (ICD-10-PCS; 2019-01-20)
DX: C73 Malignant neoplasm of thyroid gland (principal); Z68.41 Body mass index [BMI] 40.0-44.9, adult; R13.10 Dysphagia, unspecified; M54.2 Cervicalgia; E66.01 Morbid (severe) obesity due to excess calories; Z90.710 Acquired absence of both cervix and uterus; Z90.49 Acquired absence of other specified parts of digestive tract
CPT/HCPCS: 36415; 36416; 82310; 88307; 88331; 88333; J0690; J2001; J2704; J3010

== ENCOUNTER 2019-03-05 11:36 | Outpatient (CLI) | payer OTHER, SELFPAY ==
--- NOTE | 2019-03-05 14:01 | NM ---
NUCLEAR MEDICINE THYROID ABLATION THERAPY: HISTORY: Malignant neoplasm of thyroid gland. Status post near-total thyroidectomy. PROCEDURE: After discussing the risks, benefits, alternatives and radiation precaution issues with the patient, verbal and written consent was obtained for radioiodine ablation therapy. The patient verbalized understanding and was treated with 93 mCi iodine 131 orally without complications. The patient will f ollow-up with Dr. Lopes.
== END 2019-03-05 11:37 | disposition home or self-care (01) ==
LOC: NM 11:36
PROVIDERS: ATTEND Internal Medicine Endocrinology, Diabetes & Metabolism
DX: C73 Malignant neoplasm of thyroid gland (principal)
CPT/HCPCS: 79005; A9517

== ENCOUNTER 2020-09-10 13:11 | Emergency (ER) | payer OTHER, SELFPAY ==
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
[2020-09-10 14:46] LABS: Bilirubin Negative (Negative); Blood, Urine Negative (Negative); Clarity Clear (Clear); Glucose, Urine (Dipstick) Greater than 1000 mg/dL (Negative); Ketone, Urine Trace mg/dL (Negative); Leukocyte Negative Leu/uL (Negative); Nitrite Negative (Negative); Protein, Urine (Dipstick) Negative (Neg-Trace); Specific Gravity, Urine 1.006 (1.002-1.036); Urobilinogen Normal mg/dL (Less than 2); pH, Urine 5.5 (5.0-9.0)
[2020-09-10 15:00] LABS: #Basophils 0.1 thou/uL (0.0-0.2); #Eosinphils 0.1 thou/uL (0.0-0.7); #Lymphocytes 2.3 thou/uL (1.20-3.40); #Monocytes 0.6 thou/uL (0.11-0.59); %Basophils 0.6 % (0.0-1.0); %Eosinophils 0.8 % (0.0-10.0); %Lymphocytes 23.1 % (21.0-51.0); %Monocytes 5.9 % (0.0-10.0); %Neutrophils 69.6 % (42.0-75.0); Hemoglobin 14.2 g/dL (12.0-16.0); Mean Corpuscular HGB CONC 33.3 g/dL (32.0-36.0); Mean Corpuscular Hemoglobin 29.3 pg (27.0-31.0); Mean Platelet Volume 10.2 fL (7.4-10.4); Platelet Count 199 thou/uL (130-400); RBC Distribution Width 12.7 % (11.5-14.5); Red Blood Cell (RBC) Count 4.85 mill/uL (4.20-5.40)
[2020-09-10 15:07] LABS: BHCG - Serum Negative (NEGATIVE); Pregs Control Background? CLEAR/WHITE (CLR/WHITE); Pregs Control Bar Appear? YES (CONTROL BAR)
[2020-09-10 15:22] LABS: ALT (SGPT) 33 U/L (8-55); AST (SGOT) 35 U/L (5-34); Alkaline Phosphatase 90 U/L (40-110); Anion Gap 14 mmol/L (10-20); BUN (Urea Nitrogen) 15 mg/dL (9.8-20.1); Bilirubin, Total 0.7 mg/dL (0.2-1.2); Calc. Creatinine Clearance 0 mL/min (70-130); Calcium 9.1 mg/dL (7.8-10.44); Carbon Dioxide 24 mmol/L (22-29); Chloride 105 mmol/L (98-107); Globulin 4.2 g/dL (2.4-3.5); Glucose 131 mg/dL (70-105); Potassium 3.4 mmol/L (3.5-5.1); Protein, Total 8.2 g/dL (6.0-8.3); Sodium 140 mmol/L (136-145)
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
[2020-09-10] MEDS ORDERED: Aspirin 325 MG TAB ONE (15:44)
== END 2020-09-10 16:09 | disposition home or self-care (01) ==
LOC: ERS 13:11
DX: R07.89 Other chest pain (principal); V43.52XA Car driver injured in collision with other type car in traffic accident, initial encounter; E11.9 Type 2 diabetes mellitus without complications
CPT/HCPCS: 36415; 36416; 70450; 71046; 72125; 80053; 81003; 84484; 84703; 85025; 93005